=== PATIENT | male | born 1960 | race Caucasian/White ===

== ENCOUNTER 2016-11-10 23:38 | Emergency (ER) | payer OTHER ==
[~2016-11-10] VITALS: Ht 177.8 cm; Wt 104.1 kg
[2016-11-11 00:51] LABS: HEMATOCRIT 43.6 % (38.0-50.0); MCH 30.7 PG (29.0-34.0); MEAN PLAT.VOLUME 10.4 uM^3 (9.0-12.4); PLATELET COUNT 163 K/uL (156-360); RBC DIS.WIDTH-CV 12.9 % (11.8-14.6); RBC DIS.WIDTH-SD 43.9 % (39-53); RED BLOOD COUNT 4.69 M/uL (4.00-5.50)
[2016-11-11 01:01] LABS: CHLORIDE 103 mEq/L (99-109); POTASSIUM 4.3 mEq/L (3.7-5.4); SODIUM 143 mEq/L (136-147)
[2016-11-11 01:03] LABS: GLUCOSE 182 mg/dL (70-99)
[2016-11-11 01:04] LABS: ANION GAP 14 MEQ/L (2-14)
[2016-11-11 01:05] LABS: TOTAL BILIRUBIN 0.7 mg/dL (0.0-1.0)
[2016-11-11 01:06] LABS: ALKALINE PHOSPHATASE 128 IU/L (3-129)
[2016-11-11 01:07] LABS: GFR ESTIMATE (CALCULATED) 56 mL/min/
[2016-11-11 01:08] LABS: UREA NITROGEN (BUN) 29 mg/dL (9-23)
[2016-11-11 01:09] LABS: TROP-I INTERPRETATION NEGATIVE; TROPONIN-I < 0.01 ng/mL (0.0-0.30)
[2016-11-11 01:10] LABS: LIPASE 15 U/L (1.0-51.0)
[2016-11-11 02:45] VITALS: BP 144/94
== END 2016-11-11 02:50 | disposition left against medical advice (07) ==
LOC: EME 23:38
PROVIDERS: Emergency Medicine
DX: I50.9 Heart failure, unspecified (principal); N28.9 Disorder of kidney and ureter, unspecified; R73.9 Hyperglycemia, unspecified; R00.0 Tachycardia, unspecified; F17.200 Nicotine dependence, unspecified, uncomplicated
CPT/HCPCS: 71020; 80053; 83690; 83880; 84484; 85027; 85379; 93970

== ENCOUNTER 2016-11-19 09:35 | Inpatient (IN) | payer OTHER ==
[~2016-11-19] VITALS: Ht 177.8 cm; Wt 101.2 kg
[2016-11-19 10:31] LABS: EOSINOPHIL COUNT 0.1 K/uL (0-0.3); HEMATOCRIT 40.2 % (38.0-50.0); IMMATURE GRANULOCYTE (%) 0.3 % (0.0-0.7); INSTRUMENT ABS NEUTROPHIL CT 5.1 K/uL; MCH 30.6 PG (29.0-34.0); MCHC 33.1 G/DL (30.0-36.0); MCV 92.4 FL (86-99); MONOCYTE (%) 10.1 % (3-12); MONOCYTE COUNT 0.7 K/uL (0-0.8); NEUTROPHIL (%) 73.7 % (45-76); NEUTROPHIL COUNT 5.1 K/uL (1.8-6.4); PLATELET COUNT 144 K/uL (156-360); RBC DIS.WIDTH-CV 12.9 % (11.8-14.6); RBC DIS.WIDTH-SD 43.9 % (39-53); RED BLOOD COUNT 4.35 M/uL (4.00-5.50)
[2016-11-19 10:41] LABS: CHLORIDE 101 mEq/L (99-109); POTASSIUM 4.1 mEq/L (3.7-5.4); SODIUM 138 mEq/L (136-147)
[2016-11-19 10:43] LABS: GLUCOSE 127 mg/dL (70-99)
[2016-11-19 10:44] LABS: ANION GAP 10 MEQ/L (2-14)
[2016-11-19 10:46] LABS: ALKALINE PHOSPHATASE 102 IU/L (3-129)
[2016-11-19 10:47] LABS: GFR ESTIMATE (CALCULATED) 56 mL/min/
[2016-11-19 10:48] LABS: DIRECT BILIRUBIN 0.4 mg/dL (0.0-0.3); UREA NITROGEN (BUN) 21 mg/dL (9-23)
[2016-11-19 10:52] LABS: TROP-I INTERPRETATION NEGATIVE; TROPONIN-I 0.02 ng/mL (0.0-0.30)
[2016-11-19 21:54] LABS: POINT-OF-CARE METER ID UU13113725
[2016-11-19 22:00] VITALS: BP 113/79
[2016-11-19 23:33] VITALS: BP 134/83
[2016-11-20 02:58] VITALS: BP 98/58
[2016-11-20 05:36] LABS: POINT-OF-CARE METER ID UU13113725
[2016-11-20 07:43] VITALS: BP 102/62
[2016-11-20 08:22] LABS: ADD MIUA? YES; BILIRUBIN NEGATIVE; BLOOD MODERATE; COLOR YELLOW ((YELLOW)); GLUCOSE (STRIP) NEGATIVE; KETONES NEGATIVE; LEUKOCYTES NEGATIVE; NITRITE NEGATIVE; PROTEIN (STRIP) 100; SPECIFIC GRAVITY 1.011 (1.000-1.030); UROBILINOGEN 0.2 MG/DL (0.2-1.0)
[2016-11-20 08:24] LABS: BACTERIA RARE /HPF; EPITHELIAL CELLS RARE /HPF; MUCUS TRACE /LPF; RED BLOOD CELLS 0-5 /HPF (0-5); UCUL ADDED? NO; WHITE BLOOD CELLS 0-5 /HPF (0-5)
[2016-11-20 08:45] LABS: HEMATOCRIT 42.5 % (38.0-50.0); MCH 29.9 PG (29.0-34.0); MCV 93.4 FL (86-99); MEAN PLAT.VOLUME 10.3 uM^3 (9.0-12.4); PLATELET COUNT 143 K/uL (156-360); RBC DIS.WIDTH-CV 13.1 % (11.8-14.6); RBC DIS.WIDTH-SD 44.8 % (39-53); RED BLOOD COUNT 4.55 M/uL (4.00-5.50); WHITE BLOOD COUNT 6.2 K/uL (4.1-10.2)
[2016-11-20 09:08] LABS: ANION GAP 9 MEQ/L (2-14); CHLORIDE 101 MEQ/L (99-109); GFR ESTIMATE (CALCULATED) > 59 mL/min/; GLUCOSE 125 mg/dL (70-99); POTASSIUM 4.3 MEQ/L (3.7-5.4); SAMPLE HEMOLYSIS CHECK 0; SAMPLE ICTERIC CHECK 0; SAMPLE LIPEMIA CHECK 0; SODIUM 140 MEQ/L (136-147); UREA NITROGEN (BUN) 20 mg/dL (9-23)
[2016-11-20 09:22] LABS: TROP-I INTERPRETATION NEGATIVE; TROPONIN-I 0.02 ng/mL (0.0-0.30)
[2016-11-20 12:10] LABS: POINT-OF-CARE METER ID UU13113725
[2016-11-20 12:59] VITALS: BP 133/66
[2016-11-20 15:32] VITALS: BP 105/79
[2016-11-20 16:44] LABS: POINT-OF-CARE METER ID UU13113725
[2016-11-20 18:50] VITALS: BP 94/62
[2016-11-20 21:17] LABS: POINT-OF-CARE METER ID UU13113725
[2016-11-20 22:50] VITALS: BP 100/54
[2016-11-21 03:57] VITALS: BP 98/59
[2016-11-21 05:48] LABS: POINT-OF-CARE METER ID UU13113725
[2016-11-21 07:27] VITALS: BP 117/78
[2016-11-21 09:13] LABS: TROP-I INTERPRETATION NEGATIVE; TROPONIN-I 0.01 ng/mL (0.0-0.30)
[2016-11-21 09:17] LABS: EOSINOPHIL (%) 3.1 % (0-5); EOSINOPHIL COUNT 0.2 K/uL (0-0.3); HEMATOCRIT 37.4 % (38.0-50.0); IMMATURE GRANULOCYTE (%) 0.5 % (0.0-0.7); INSTRUMENT ABS NEUTROPHIL CT 4.3 K/uL; LYMPHOCYTE COUNT 0.8 K/uL (1.0-2.8); MCH 30.3 PG (29.0-34.0); MCHC 32.4 G/DL (30.0-36.0); MCV 93.5 FL (86-99); MEAN PLAT.VOLUME 10.7 uM^3 (9.0-12.4); MONOCYTE (%) 14.4 % (3-12); MONOCYTE COUNT 0.9 K/uL (0-0.8); NEUTROPHIL (%) 68.6 % (45-76); NEUTROPHIL COUNT 4.3 K/uL (1.8-6.4); PLATELET COUNT 129 K/uL (156-360); RBC DIS.WIDTH-CV 13.2 % (11.8-14.6); WHITE BLOOD COUNT 6.2 K/uL (4.1-10.2)
[2016-11-21 09:41] LABS: ALKALINE PHOSPHATASE 86 IU/L (3-129); ANION GAP 9 MEQ/L (2-14); CHLORIDE 102 MEQ/L (99-109); GFR ESTIMATE (CALCULATED) > 59 mL/min/; GLUCOSE 133 mg/dL (70-99); POTASSIUM 4.2 MEQ/L (3.7-5.4); SAMPLE HEMOLYSIS CHECK 0; SAMPLE ICTERIC CHECK 0; SAMPLE LIPEMIA CHECK 0; SODIUM 142 MEQ/L (136-147); TOTAL BILIRUBIN 0.7 MG/DL (0.0-1.0); UREA NITROGEN (BUN) 26 mg/dL (9-23)
[2016-11-21 11:23] LABS: POINT-OF-CARE METER ID UU13113725
[2016-11-21 16:06] LABS: POINT-OF-CARE METER ID UU13113725
[2016-11-21 16:22] VITALS: BP 117/82
[2016-11-21 18:57] VITALS: BP 115/58
[2016-11-21 21:04] LABS: POINT-OF-CARE METER ID UU13113725
[2016-11-21 21:07] VITALS: BP 99/61
[2016-11-21 22:52] VITALS: BP 108/56
[2016-11-22 00:14] VITALS: BP 96/67
[2016-11-22 02:52] VITALS: BP 101/65
[2016-11-22 05:30] LABS: POINT-OF-CARE METER ID UU13113725
[2016-11-22 07:49] VITALS: BP 127/74
[2016-11-22 10:58] LABS: POINT-OF-CARE METER ID UU13113725
[2016-11-22 16:01] LABS: POINT-OF-CARE METER ID UU13113725
[2016-11-22 16:24] VITALS: BP 100/57
[2016-11-22 21:47] LABS: POINT-OF-CARE METER ID UU13113725
[2016-11-22 23:25] VITALS: BP 85/58
[2016-11-23 04:11] VITALS: BP 109/63
[2016-11-23 06:34] LABS: POINT-OF-CARE METER ID UU13113725
[2016-11-23 06:55] VITALS: BP 99/63
[2016-11-23 11:51] VITALS: BP 95/58
[2016-11-23 11:54] LABS: POINT-OF-CARE METER ID UU13113725
[2016-11-23] MEDS ORDERED: LISINOPRIL10 MG PO (13:15)
[2016-11-23] MEDS ORDERED: CARVEDILOL6.25 MG PO (13:15)
[2016-11-23] MEDS ORDERED: CLOPIDOGREL75 MG PO (13:15)
[2016-11-23] MEDS ORDERED: TYLENOL REGULA325 MG PO (13:16)
[2016-11-23] MEDS ORDERED: KLOR-CON M1010 MEQ PO (13:16)
[2016-11-23] MEDS ORDERED: FUROSEMIDE40 MG PO (13:16)
[2016-11-23] MEDS ORDERED: ASPIR-LOW81 MG PO (13:16)
[2016-11-23] MEDS ORDERED: FAMOTIDINE20 MG PO (13:17)
[2016-11-23] MEDS ORDERED: METFORMIN HCL500 M4 PO (13:18)
[2016-11-23] MEDS ORDERED: METFORMIN HCL500 MG PO (13:20)
== END 2016-11-23 13:55 | disposition home or self-care (01) | DRG 291 ==
LOC: EME 09:35 → EDOF 19:43 → 5EAST 19:43 → ENRESERV 19:44 → 5EAST 20:46
PROVIDERS: Emergency Medicine; Family Medicine; Internal Medicine
DX: I11.0 Hypertensive heart disease with heart failure (principal); I50.31 Acute diastolic (congestive) heart failure; J18.9 Pneumonia, unspecified organism; I27.2 Other secondary pulmonary hypertension; N28.9 Disorder of kidney and ureter, unspecified; E11.9 Type 2 diabetes mellitus without complications; E78.5 Hyperlipidemia, unspecified; N50.89 Other specified disorders of the male genital organs; E66.9 Obesity, unspecified; Z68.32 Body mass index [BMI] 32.0-32.9, adult; Z87.891 Personal history of nicotine dependence; Z91.19 Patient's noncompliance with other medical treatment and regimen
CPT/HCPCS: 71020; 80048; 80053; 80076; 81003; 82948; 83605; 83880; 84484; 85025; 85027; 90686; 93005; 93306; 94799; 99281; 99285; J0692; J1650; J1815; J1940; J7050; S0028